=== PATIENT | female | born 1985 | race American Indian/Alaskan Native ===

== ENCOUNTER 2017-07-29 15:15 | Inpatient (IN) | payer BC ==
[2017-07-28 13:32] LABS: Hematocrit 23.5 % (30.3-42.9); Hemoglobin 6.9 gm/dl (10.1-14.3); Red Blood Count 4.08 M/mm3 (3.65-5.03); White Blood Count 6.1 K/mm3 (4.5-11.0)
[2017-07-28 13:33] LABS: Mean Corpuscular HGB Conc 29 % (30-34); Mean Corpuscular Hemoglobin 17 pg (28-32); Mean Corpuscular Volume 58 fl (79-97); Platelet Count 416 K/mm3 (140-440); Red Cell Distribution Width 21.2 % (13.2-15.2)
[2017-07-28 13:38] LABS: Anion Gap 13 mmol/L; BUN/Creatinine Ratio 23; Blood Urea Nitrogen 14 mg/dL (7-17); Calcium 8.7 mg/dL (8.4-10.2); Carbon Dioxide 23 mmol/L (22-30); Chloride 104.8 mmol/L (98-107); Glucose 92 mg/dL (65-100); Potassium 3.7 mmol/L (3.6-5.0); Sodium 137 mmol/L (137-145)
[2017-07-28 14:17] LABS: Anisocytosis 1+; Basophils % (Manual) 0 % (0.0-1.8); Blastocytes % (Manual) 0 %; Diff Status Complete; Hypochromasia 2+; Microcytosis 2+; Platelet Estimate Consistent w Auto; Schistocytes Few
[2017-07-29] MEDS ORDERED: NACL 0.9% 500 ML 500 ML IV ONE (16:12)
[2017-07-29] MEDS ORDERED: NACL 0.9% 500 ML 500 ML IV NR (16:12)
--- NOTE | 2017-07-29 18:04 | History and Physical Report ---
History of Present Illness Date of examination: 07/29/17 Chief complaint: Symptomatic anemia, Uterine Fibroids, Dysfunctional Uterine Bleeding History of present illness: Pt is a 31 year old -[place] female nulligravida presents for surgical management of DUB, fibroids causing symptomatic anemia. She is scheduled for abdominal myomectomy tomorrow and presents for preoperative blood transfusion. Past History Past Medical History: asthma (childhood ), other (eczema ) Past Surgical History: no surgical history CORRECTIONS LIEUTENANT History: fibroids Family/Genetic History: heart disease, hypertension Social history: no significant social history Medications and Allergies Allergies Allergy/AdvReac Type Severity Reaction Status Date / Time No Known Allergies Allergy Verified 09/26/13 11:35 Home Medications Medication Instructions Recorded Confirmed Last Taken Type Aspirin/Acetaminophen/Caffeine 1 each PO PRN PRN 07/22/17 07/22/17 07/18/17 09: 00 History [Excedrin Extra Strength Caplet] Review of Systems All systems: negative - Physical Exam Breasts: Positive: deferred Cardiovascular: Regular rate Lungs: Positive: Clear to auscultation Abdomen: Positive: soft Uterus: Positive: enlarged Extremities: Positive: normal Results Result Diagrams: 07/28/17 13:11 07/28/17 13:11 Abnormal lab results 07/28/17 Range/Units 13:11 Crossmatch See Detail All other labs normal. Assessment and Plan A: Fibroid Uterus Dysfunctional Uterine Bleeding Symptomatic anemia Desires Fertility Childhood asthma P: Admit for preoperative transfusion of 2 units PRBCs prior to myomectomy.
[2017-07-29] MEDS ORDERED: BENADRYL PO ONE (20:59)
[2017-07-29] MEDS ORDERED: TYLENOL PO ONE (21:00)
[2017-07-30 05:48] LABS: Hematocrit 32.1 % (30.3-42.9); Hemoglobin 9.9 gm/dl (10.1-14.3); Mean Corpuscular HGB Conc 31 % (30-34); Mean Corpuscular Hemoglobin 20 pg (28-32); Mean Corpuscular Volume 65 fl (79-97); Platelet Count 423 K/mm3 (140-440); Red Blood Count 4.95 M/mm3 (3.65-5.03); Red Cell Distribution Width 29.9 % (13.2-15.2); White Blood Count 7.5 K/mm3 (4.5-11.0)
[2017-07-30] MEDS ORDERED: ANCEF/STERILE WATER 2 GM/20 ML 2 GM/20 ML SYRINGE IV SCH (06:00)
[2017-07-30] MEDS ORDERED: SUBLIMAZE IV ONE (06:22)
[2017-07-30] MEDS ORDERED: XYLOCAINE 1% 20 mL INFILTRATI NR (06:30)
[2017-07-30] MEDS ORDERED: NACL 0.9% 1000 ML 1,000 ML ONE ×4 (06:32→11:18)
[2017-07-30 06:33] LABS: Anisocytosis 2+; Blastocytes % (Manual) 0 %; Elliptocytes Few; Helmet Cells Rare; Hypochromasia 2+; Microcytosis 2+; Ovalocytes 1+; Poikilocytosis 2+; Polychromasia 1+; Schistocytes Few; Target Cells 1+; Tear Drop Cells 1+
[2017-07-30 06:34] LABS: Diff Status Complete
[2017-07-30] MEDS ORDERED: MORPHINE IV PRN (06:43)
[2017-07-30] MEDS ORDERED: ZOFRAN IV PRN (06:43)
--- NOTE | 2017-07-30 06:43 | Anesthesia Day of Surgery ---
Anesthesia Day of Surgery - Day of Surgery Patient Examined: Yes Patient H&P Reviewed: Yes Patient is NPO: Yes
--- NOTE | 2017-07-30 06:43 | Anesthesia Consultation ---
Anesthesia Consult and Med Hx Date of service: 07/30/17 - Airway Anesthetic Teeth Evaluation: Good ROM Head & Neck: Adequate Mental/Hyoid Distance: Adequate Mallampati Class: Class II Intubation Access Assessment: Probably Good - Pulmonary Exam CTA: Yes - Cardiac Exam Cardiac Exam: RRR - Pre-Operative Health Status ASA Pre-Surgery Classification: ASA2 Proposed Anesthetic Plan: General Nerve Block: TAP - Pulmonary Hx Smoking: No Hx Asthma: Yes (over 10 years ago last attacik) COPD: No Hx Pneumonia: No Hx Sleep Apnea: No - Cardiovascular System Hx Hypertension: No - Central Nervous System Hx Psychiatric Problems: No - Endocrine Hx End Stage Renal Disease: No - Hematic Hx Anemia: Yes - Other Systems Hx Alcohol Use: Yes (SOCIALLY) Hx Substance Use: No Hx Cancer: No
[2017-07-30] MEDS ORDERED: MARCAINE 0.5% 30 ML INFILTRATI ONE ×2 (06:51)
[2017-07-30] MEDS ORDERED: ADRENALIN ONE (06:52)
[2017-07-30] MEDS ORDERED: VERSED IV NR (07:00)
[2017-07-30] MEDS ORDERED: NACL P/F VIAL (10 ML) INFILTRATI NR (07:00)
[2017-07-30] MEDS ORDERED: MARCAINE 0.5% INFILTRATI NR (07:00)
[2017-07-30] MEDS ORDERED: PEPCID IV NR (07:00)
[2017-07-30] MEDS ORDERED: DIPRIVAN 10 MG/ML IV ONE (07:05)
[2017-07-30] MEDS ORDERED: SUBLIMAZE ONE (07:05)
[2017-07-30] MEDS ORDERED: ZEMURON IV ONE (07:10)
[2017-07-30] MEDS ORDERED: XYLOCAINE MPF 2% ONE (07:10)
[2017-07-30] MEDS ORDERED: METHYLENE BLUE ONE (07:16)
[2017-07-30] MEDS ORDERED: Vasostrict ONE (07:17)
[2017-07-30] MEDS ORDERED: NACL 0.9% 100 ML ONE (07:18)
--- NOTE | 2017-07-30 07:20 | Event Note ---
Date: 07/30/17 Pt admitted overnight for blood transfusion preoperatively. She received two units with appropriate rise in H/H. Plan to proceed with abdominal myomectomy and other indicated procedures as planned with cell saver.
[2017-07-30] MEDS ORDERED: ACD-A 500 ML IV ONE (07:22)
[2017-07-30] MEDS ORDERED: Vasostrict IV ONE (07:30)
[2017-07-30] MEDS ORDERED: ACD-A IV ONE (07:30)
[2017-07-30] MEDS ORDERED: NACL 0.9% IR ONE (07:30)
[2017-07-30] MEDS ORDERED: NACL 0.9% IV ONE (07:30)
[2017-07-30] MEDS ORDERED: DECADRON ONE (07:58)
[2017-07-30] MEDS ORDERED: ROBINUL ONE (08:33)
[2017-07-30] MEDS ORDERED: NEOSTIGMINE ONE (08:33)
[2017-07-30] MEDS ORDERED: ZOFRAN ONE (09:09)
[2017-07-30] MEDS ORDERED: DILAUDID IV ONE (09:50)
[2017-07-30] MEDS ORDERED: DILAUDID ONE (09:55)
--- NOTE | 2017-07-30 10:08 | Operative Report ---
Operative Report Operative Report: Date of procedure: July 30, 2017 Preoperative diagnosis: 1) Dysfunctional Uterine Bleeding 2) Fibroid Uterus 3) Pelvic Pain 4) Desires fertility 5) Symptomatic anemia Postoperative diagnosis: same Procedure: Abdominal Myomectomy Surgeon: Patito Joyner MD Slitter Creaser Slotter Operator: Elham Goss MD Anesthesia: General endotracheal anesthesia Findings: 1) 14-16 wk sized uterus with multiple fibroids 2) Normal appearing ovaries and fallopian tubes EBL: 150 mL IVF: 1300 mL Urine output: 150 mL, clear at the end of the procedure Specimens: Fibroids to pathology Drains: Hurd to gravity Complications: None. Counts correct x 2. Disposition: stable to PACU Indication: Pt is a 31 year old female nulligravida who presents for surgical management of uterine fibroids causing pelvic pain, dysfunctional uterine bleeding and symptomatic anemia. She desires future fertility. Operation in detail: After the risks, benefits, alternatives and complications of the procedure were explained to the patient, she gave informed consent for the procedure. She was subsequently taken to the operating room with her IV fluids noted to be running well and placed in the dorsal supine position. SCDs were noted to be in place and functioning. General anesthesia was induced with some difficulty. An exam under anesthesia revealed an 14-16 wk sized uterus. The patient was subsequently prepped and draped in a normal fashion and a hurd catheter was placed. A time out was performed. A Pfanenstiel skin incision was made with knife and carried down to the fascia with the Bovie. The fascia was incised in the midline with the Bovie, and the incision was extended bilaterally. Attention was then turned to the superior aspect of the fascial incision which was grasped with two Kochers, tented up and dissected off the rectus muscles. Attention was then turned to the inferior aspect of the incision which was grasped with two Kochers, tented up, and dissected off the rectus muscles. The peritoneum was entered bluntly and the peritoneal incision was extended superiorly and inferiorly with the Bovie. The peritoneal incision was then stretched. At this time the uterus was grasped with a Estee clamp, and delivered through the incision. One large subserosal fibroid were palpated. Two incisions were made into the uterine serosa on the posterior surfaces of the uterus after the tissue was infiltrated with a dilute pitressin solution. Once each fibroid was identified, it was grasped with a Estee clamp and a combination of dissection with the Bovie and Castro scissors were used to excise the fibroids. The endometrium was interrupted during this procedure. The endometrium was reapproximated with 2- Vicryl in a running fashion. The remaining defects were closed in multiple layers with 0-Vicryl in a running locked fashion. Hemostasis was noted. The incisions were covered with Lokesh. Intercede was then placed over the fundus and anterior surface of the uterus. The uterus was returned to the peritoneal cavity. The peritoneum and rectus muscles were then reapproximated with 2-0 Vicryl in a running fashion. The fascial incision was reapproximated with 0-Vicryl in a running fashion. The skin was reapproximated with 4-0 Monocryl in a subcuticular fashion. The incision was then covered with Steri-Strips and a pressure dressing. The procedure was then ended. The patient was extubated without difficulty and taken to the PACU in stable condition. All instrument, lap and needle counts were correct x 2. This pt has been counseled that she should be delivered via section should she become .
--- NOTE | 2017-07-30 10:08 | Post Operative Note ---
Pre-op diagnosis: DUB, Fibroid Uterus, Symptomatic anemia Post-op diagnosis: same Findings: 1)14-16 wk sized uterus with multiple fibroids 2) Suspected endometriotic implants on the serosal surface of the uterus 3) Normal appearing ovaries and tubes Procedure: Abdominal Myomectomy Anesthesia: GETA Surgeon: GEORGIE REA Institute Scientist: ZEYNEP MCNULTY Estimated blood loss: other (150 mL) Pathology: list (fibroids) Specimen disposition: to lab Condition: stable Disposition: PACU
[2017-07-30] MEDS: DILAUDID IV PRN ×2 (10:10→10:20)
[2017-07-30] MEDS: TORADOL IV SCH ×3 (10:30→23:59)
[2017-07-30] MEDS ORDERED: D5W/0.45% NACL/KCL 20 MEQ 20 MEQ/1,000 ML BAG IV SCH (11:00)
[2017-07-30] MEDS ORDERED: ANCEF/NS 1 GM/50 ML 1 GM/50 ML BAG IV SCH (11:00)
[2017-07-30] MEDS ORDERED: MILK OF MAGNESIA PO PRN (11:00)
[2017-07-30] MEDS ORDERED: DILAUDID IV PRN ×2 (11:00)
[2017-07-30] MEDS ORDERED: NARCAN 0.4 MG/1 ML IV PRN (11:30)
[2017-07-30] MEDS: ceFAZolin 1 GM in NACL 0.9% 20 ML IV SCH (17:48)
[2017-07-30] MEDS: MORPHINE IV PRN (21:47)
[2017-07-30] MEDS ORDERED: D5LR 1,000 ML IV SCH (22:00)
[2017-07-31] MEDS: ceFAZolin 1 GM in NACL 0.9% 20 ML IV SCH (00:02)
[2017-07-31] MEDS: MORPHINE IV PRN ×2 (05:17→21:58)
[2017-07-31 05:45] LABS: Hematocrit 22.7 % (30.3-42.9); Hemoglobin 6.8 gm/dl (10.1-14.3)
[2017-07-31 06:08] LABS: Anion Gap 16 mmol/L; BUN/Creatinine Ratio 11; Blood Urea Nitrogen 8 mg/dL (7-17); Calcium 7.8 mg/dL (8.4-10.2); Carbon Dioxide 22 mmol/L (22-30); Chloride 108.3 mmol/L (98-107); Glucose 102 mg/dL (65-100); Potassium 3.8 mmol/L (3.6-5.0); Sodium 142 mmol/L (137-145)
[2017-07-31] MEDS: TORADOL IV SCH ×2 (06:32→23:05)
--- NOTE | 2017-07-31 08:55 | Progress Note ---
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 Closely monitor clinical status. Subjective - Subjective Date of service: 07/31/17 Principal diagnosis: POD#1 s/p myomectomy Interval history: Pt reports that her vaginal bleeding is decreasing. She is tying to limit her pain medication but is in severe pain. Patient reports: appetite normal, voiding normally, flatus (minimal ), ambulating normally (minimally ), no bowel movement, no nauseated Objective - Vital Signs Latest vital signs: Vital Signs Temp Pulse Resp BP BP Pulse Ox 07/31/17 06:30 98.5 F 90 18 104/54 07/31/17 01:50 98.7 F 81 18 96/48 100 07/30/17 21:32 99.5 F 91 H 18 103/62 99 07/30/17 19:50 99 07/30/17 17:45 97.7 F 90 20 106/61 07/30/17 11:45 100 07/30/17 11:40 98.4 F 90 19 106/56 07/30/17 11:20 80 16 118/67 100 07/30/17 11:10 80 15 108/59 100 07/30/17 10:55 79 15 107/62 100 07/30/17 10:40 98.1 F 84 16 117/56 100 07/30/17 10:30 15 07/30/17 10:25 83 15 110/58 100 07/30/17 10:20 15 07/30/17 10:10 74 16 113/52 100 07/30/17 10:00 15 07/30/17 09:55 78 17 116/73 100 07/30/17 09:50 82 19 106/65 100 07/30/17 09:45 85 18 108/70 100 07/30/17 09:38 96.8 F L 82 12 97/59 100 Intake and Output 07/30/17 07/31/17 07/31/17 22:59 06:59 14:59 Intake Total 420 120 Output Total 1250 350 Balance -830 -230 Intake: Oral 240 Intake, Free Water 180 120 Output: Urine 1250 350 Indwelling Catheter 1250 350 Other: Total, Intake Amount 240 Total, Output Amount 700 350 Voiding Method Indwelling Catheter - Exam Breasts: Present: deferred Cardiovascular: Present: Regular rate Lungs: Present: Clear to auscultation Abdomen: Present: soft, abnormal bowel sounds (hypoactive ) Extremities: Present: normal. Absent: tenderness Incision: Present: intact - Labs Labs: Abnormal lab results 07/31/17 07/31/17 Range/Units 05:14 05:14 Hgb 6.8 L D (10.1-14.3) gm/dl Hct 22.7 L D (30.3-42.9) % Chloride 108.3 H (98-107) mmol/L Glucose 102 H (65-100) mg/dL Calcium 7.8 L (8.4-10.2) mg/dL
[2017-07-31] MEDS: PERCOCET 5/325 PO PRN (12:30)
[2017-07-31] MEDS ORDERED: MOTRIN PO PRN (13:20)
--- NOTE | 2017-07-31 14:59 | Query-Anemia ---
Dear Date:_07/31/17 Roadability Machine Operator/JAMIL: Jeanette Phone#:[phone] Exercise your independent professional judgment when responding to this query. Questions asked do not imply a particular answer is desired or expected. We greatly appreciate your clarification on this issue. Clinical Documentation States:31 year old -Citizen Of [place] female n 31 year old female was admitted on 07/29/17. Operative Report(Dr Joyner on 07/30/17) states"Preoperative diagnosis: 1) Dysfunctional Uterine Bleeding 2) Fibroid Uterus 3) Symptomatic anemia Postoperative diagnosis: same Procedure: Abdominal Myomectomy EBL: 150 mL Clinical Findings Show: 07/30/17 07/31/17 Hgb 9.9 6.8 Hct 32.1 22.7 Treatment:_ Etiology: [X ] Anemia due to acute blood loss [ ] Anemia due to chronic blood loss [ ] Anemia secondary to ESRD [ ] Anemia secondary to neoplastic disease [ ] Iron deficiency anemia due to malabsorption [ ] GI Bleed from: [ ] Anemia of chronic disease ,Other: [X ] Precipitous Drop in Hemoglobin [X ] Precipitous Drop in Hematocrit [ ] Other: [ ] Unable to determine [X ] Comment/Explanation:__PT had heavy vaginal bleeding postoperatively as well Present on Admission: [ X] Yes (Y) [ ] Clinically undeterminable (W) [ ] No (N) Please also document response in your Progress Notes and/or Discharge Summary and indicate if the condition was present on admission. JASMIN
[2017-08-01] MEDS: MORPHINE IV PRN (06:20)
--- NOTE | 2017-08-01 11:06 | Progress Note ---
Assessment and Plan - Patient Problems (1) Leiomyoma Current Visit: Yes Status: Acute Plan to address problem: patient is not ready to be discharged despite meeting criteria will attempt to discharge home tomorrow Subjective - Subjective Date of service: 08/01/17 Principal diagnosis: POD#2 s/p myomectomy Interval history: Patient did tolerate her regular diet for breakfast. Aware of decreased in H/H however patient appears to be tolerating. Pain control is improving. Patient reports: appetite normal, voiding normally Objective - Vital Signs Latest vital signs: Vital Signs Temp Pulse Resp BP Pulse Ox 08/01/17 07:20 98.2 F 89 20 98/62 99 08/01/17 06:42 16 08/01/17 06:20 18 08/01/17 05:21 98.5 F 84 20 107/69 08/01/17 01:55 97.8 F 81 22 95/57 07/31/17 23:05 18 07/31/17 22:26 18 07/31/17 22:05 99.3 F 86 18 107/66 07/31/17 21:58 18 07/31/17 18:55 98.2 F 73 18 105/63 07/31/17 12:05 98.4 F 76 18 106/65 Intake and Output 07/31/17 08/01/17 08/01/17 22:59 06:59 14:59 Intake Total 360 180 Output Total 200 Balance 160 180 Intake: Oral 120 Intake, Free Water 240 180 Output: Urine 200 Void 200 Other: Total, Intake Amount 120 Total, Output Amount 200 Voiding Method Toilet Toilet - Exam Abdomen: Present: soft Incision: Present: dressed
[2017-08-01] MEDS: TORADOL IV SCH ×6 (12:00→23:32)
[2017-08-01] MEDS: PERCOCET 5/325 PO PRN (12:57)
[2017-08-01] MEDS: ZOFRAN IV PRN (17:12)
[2017-08-02] MEDS: MORPHINE IV PRN (05:47)
[2017-08-02] MEDS: ZOFRAN IV PRN ×2 (05:49→16:13)
[2017-08-02] MEDS: TORADOL IV SCH ×4 (08:04→22:41)
[2017-08-02] MEDS: PERCOCET 5/325 PO PRN (13:43)
--- NOTE | 2017-08-02 16:51 | Progress Note ---
Assessment and Plan O: Patient "refuses" to go home although she is clinically stable c/o pain and nausea P: MD consult Subjective - Subjective Date of service: 08/02/17 Principal diagnosis: POD#2 s/p myomectomy Patient reports: appetite normal, voiding normally, pain well controlled, flatus , ambulating normally, nauseated Objective - Vital Signs Latest vital signs: Vital Signs Temp Pulse Resp BP Pulse Ox 08/02/17 11:51 98.1 F 80 20 95/54 98 08/02/17 09:14 98.2 F 71 16 109/67 99 08/02/17 04:00 98.6 F 66 18 102/63 08/02/17 00:00 98.6 F 71 16 110/68 08/01/17 19:35 98.6 F 69 18 121/79 08/01/17 19:30 98.6 F 77 18 102/69 Intake and Output 08/02/17 08/02/17 08/02/17 06:59 14:59 22:59 Intake Total 240 Output Total 400 Balance -160 Intake: Oral 240 Output: Urine 400 Void 400 Other: Total, Intake Amount 240 Total, Output Amount 150 Voiding Method Toilet - Exam Breasts: Present: deferred Abdomen: Present: normal appearance, soft, normal bowel sounds. Absent: distention Uterus: Present: normal, firm Extremities: Present: normal
[2017-08-03] MEDS: TORADOL IV SCH ×3 (06:16→17:43)
--- NOTE | 2017-08-03 08:32 | Progress Note ---
Assessment and Plan A: Day 4 s/p myomectomy P: D/C home Routine orders Subjective - Subjective Date of service: 08/03/17 Principal diagnosis: POD#2 s/p myomectomy Patient reports: appetite normal, voiding normally, pain well controlled, flatus , ambulating normally Objective - Vital Signs Latest vital signs: Vital Signs Temp Pulse Pulse Resp BP Pulse Ox 08/03/17 06:16 18 08/02/17 23:11 18 08/02/17 22:41 18 08/02/17 22:00 18 L 18 08/02/17 17:33 20 08/02/17 17:20 98.6 F 78 20 116/71 08/02/17 11:51 98.1 F 80 20 95/54 98 08/02/17 09:14 98.2 F 71 16 109/67 99 Intake and Output 08/02/17 08/03/17 08/03/17 22:59 06:59 14:59 Other: Voiding Method Toilet - Exam Breasts: Present: deferred Abdomen: Present: normal appearance, soft. Absent: distention Uterus: Present: normal, firm. Absent: bogginess, tenderness Extremities: Present: normal Incision: Present: normal, dry, intact
--- NOTE | 2017-08-03 08:35 | Discharge Summary ---
Providers - Providers Date of Admission: 07/29/17 18:18 Date of discharge: 08/03/17 Attending physician: GEORGIE REA Primary care physician: JA ADAME Hospitalization Reason for admission: other (myomectomy) Episiotomy: none Laceration: none Incision: normal, dry, intact Other procedures: none complications: none Condition at discharge: Good Disposition: DC-30 STILL A PATIENT Plan - Discharge Medications Prescriptions: Docusate Sodium [Colace] 100 mg PO BID PRN #60 capsule PRN Reason: Constipation Ferrous Sulfate 325 mg PO BID #60 tablet. Ibuprofen [Motrin] 800 mg PO Q8HR PRN #30 tablet PRN Reason: Pain oxyCODONE /ACETAMINOPHEN [Percocet 5/325] 1 tab PO Q6HR PRN #40 tablet PRN Reason: Pain - Provider Discharge Summary Activity: routine, no sex for 6 weeks, no heavy lifting 4 weeks, no strenuous exercise Instructions: routine Additional instructions: [] Smoking cessation referral if applicable(refer to patient education folder for contact #) [] Refer to [facility] Booklet Call your doctor immediately for: * Fever > 100.5 * Heavy vaginal bleeding ( >1 pad per hour) * Severe persistent headache * Shortness of breath * Reddened, hot, painful area to leg or breast * Drainage or odor from incision. * Keep incision clean and dry at all times and follow doctor's instructions regarding bathing/showering - Follow up plan Follow up: JA ADAME MD [Primary Care Provider] - 7 Days GEORGIE REA MD [Staff Physician] - 7 Days (Incision Check)
[2017-08-03 09:04] VITALS: BP 123/79
[2017-08-03] MEDS ORDERED: DULCOLAX PR PRN (10:00)
[2017-08-03] MEDS: PERCOCET 5/325 PO PRN (18:05)
== END 2017-08-03 18:30 | disposition home or self-care (01) | DRG 742 ==
LOC: 3A 15:15 → UNDOADMIN 15:15 → OB 18:18
PROVIDERS: ADMIT Obstetrics & Gynecology; ATTEND Obstetrics & Gynecology
PROC: 30233N1 Transfusion of Nonautologous Red Blood Cells into Peripheral Vein, Percutaneous Approach (ICD-10-PCS; 2017-07-29)
PROC: 0UB90ZZ Excision of Uterus, Open Approach (ICD-10-PCS; principal; 2017-07-30)
DX: D25.2 Subserosal leiomyoma of uterus (principal); D62 Acute posthemorrhagic anemia; N93.8 Other specified abnormal uterine and vaginal bleeding; Z82.49 Family history of ischemic heart disease and other diseases of the circulatory system; Z79.82 Long term (current) use of aspirin; Z64.1 Problems related to multiparity; Z72.89 Other problems related to lifestyle
CPT/HCPCS: 36415; 64450; 80048; 84703; 85007; 85014; 85018; 85025; 86850; 86900; 86901; 86920; 88305; C1765; J0171; J0690; J1100; J1170; J1885; J2250; J2270; J2405; J2704; J2710; J3010; J7030; J7040; J7121; P9016; Q9968

== ENCOUNTER → 2017-11-22 17:07 | Emergency (ER) | payer SELFPAY | END | disposition left against medical advice (07) | LOC: ED 17:07 | DX: K13.0 Diseases of lips (principal); Z53.21 Procedure and treatment not carried out due to patient leaving prior to being seen by health care provider ==

== ENCOUNTER 2019-10-13 10:44 | Emergency (ER) | payer SELFPAY ==
[2019-10-13 11:58] VITALS: BP 113/77
[2019-10-13 12:17] LABS: Bilirubin,Urine NEG (Negative); Blood,Urine NEG (Negative); Color,Urine Yellow (Yellow); Hyaline Casts,Urine 1 /LPF; Mucus,Urine FEW /HPF; Protein,Urine <15 mg/dL mg/dL (Negative); Urobilinogen,Urine < 2.0 mg/dL (<2.0)
--- NOTE | 2019-10-13 14:07 | Emergency Department Report ---
Chief Complaint: Abdominal Pain Stated Complaint: SORE THROAT/POSS UTI Time Seen by Provider: 10/13/19 13:43 - HPI History of Present Illness: 34-year-old -Hung[place] female presents to the emergency room complaining of a sore throat x1 week and urinary frequency x1.5 weeks. Patient reports that it feels like pressure. Patient thinks she has a urinary tract infection. Patient denies any fever, no chills no nausea no vomiting or diarrhea. - Exam Vital Signs: Vital Signs 10/13/19 11:55 Temperature 98.6 F Pulse Rate 100 H Respiratory 20 Rate Blood Pressure 113/77 O2 Sat by Pulse 100 Oximetry Physical Exam: Alert and oriented x3 no acute distress nontoxic in appearance Mouth: Oral mucosa is moist no tonsillar exudate no tonsillar hypertrophia or edema oral is patent Abdomen soft nontender nondistended MSE screening note: Focused history and physical exam performed. Due to findings the following was ordered: 34-year-old -Hungarian female presents to the emergency room complaining of a sore throat x1 week and urinary frequency x1.5 weeks. Patient reports that it feels like pressure. Patient thinks she has a urinary tract infection. Patient denies any fever, no chills no nausea no vomiting or diarrhea. Patient urine is negative for urinary tract infection. Patient can take [id number] ibuprofen or Tylenol for pain management for sore throat. There is no exudate no fever no concerns for bacterial infection. Patient most likely has a viral pharyngitis. Patient should follow-up with her primary care provider or urgent care. ED Disposition for MSE Disposition: MED SCREENING EXAM-LEFT Is pt being admited?: No Does the pt Need Aspirin: No Condition: Stable Additional Instructions: Urine is negative for any urinary tract infection negative test. You can take Tylenol or ibuprofen for pain management. Follow-up at a primary care urgent care clinic. Referrals: PRIMARY CARE, [Primary Care Provider] - 3-5 Days Forms: Work/School Release Form(ED)
== END 2019-10-13 14:18 | disposition left against medical advice (07) ==
LOC: ED 10:44
DX: J02.9 Acute pharyngitis, unspecified (principal); R35.0 Frequency of micturition; Z91.040 Latex allergy status
CPT/HCPCS: 81001